=== PATIENT | female | born 1980 | race Caucasian/White ===

== ENCOUNTER 2017-07-18 15:27 | Inpatient (IN) | payer BC, OTHER ==
[~2017-07-18] VITALS: Ht 170.2 cm; Wt 55.3 kg
[2017-07-18] MEDS ORDERED: diphenhydrAMINE 50 MG CAPSULE PO PRN (19:00)
[2017-07-18] MEDS ORDERED: MIRALAX 17 GM POWD.PACK PO PRN (19:00)
[2017-07-18] MEDS ORDERED: ACETAMINOPHEN 325 MG TABLET PO PRN (19:00)
[2017-07-18] MEDS ORDERED: MAG HYDROX/AL HYDROX/SIMETH 30 ML LIQUID UDC PO PRN (19:00)
[2017-07-18] MEDS ORDERED: IBUPROFEN 400 MG TABLET PO PRN (19:00)
[2017-07-18] MEDS ORDERED: LOPERAMIDE HCL 2 MG CAPSULE PO PRN ×2 (19:00)
[2017-07-18] MEDS ORDERED: LORAZEPAM 1 MG TABLET PO PRN ×2 (19:00)
[2017-07-18] MEDS ORDERED: THIAMINE HCL 200 MG/2 ML VIAL IM ONE (19:00)
[2017-07-18] MEDS ORDERED: ONDANSETRON 4 MG/2 ML VIAL IM PRN (19:00)
[2017-07-18] MEDS ORDERED: ONDANSETRON ODT 4 MG TAB.RAPDIS SL PRN (19:00)
[2017-07-18 20:02] LABS: *URINE HCG, QUAL NEGATIVE (NEGATIVE)
[2017-07-18 20:16] LABS: *AMPHETAMINE, URINE NEGATIVE (NEGATIVE); *BARBITURATE, URINE NEGATIVE (NEGATIVE); *CANNABINOID, URINE NEGATIVE (NEGATIVE); *COCCAINE, URINE POSITIVE (NEGATIVE); *OPIATE, URINE NEGATIVE (NEGATIVE); *PHENCYCLIDINE SCREEN,URINE NEGATIVE (NEGATIVE)
[2017-07-18 20:17] LABS: EOSINOPHILS # (AUTO) 0.3 K/uL (0.0-0.7); EOSINOPHILS % (AUTO) 7.9 % (0.0-7.0); HEMATOCRIT 40.2 % (37-47); HEMOGLOBIN 13.1 G/DL (12.0-16.0); LYMPHOCYTES # (AUTO) 2.1 K/UL (0.8-4.8); LYMPHOCYTES % (AUTO) 47.8 % (20.5-51.5); MEAN CORPUSCULAR HEMOGLOBIN 28.7 UUG (27.0-31.0); MEAN CORPUSCULAR HGB CONC 33 g/dL (32.0-37.0); MONOCYTES # (AUTO) 0.3 K/UL (0.1-1.30); MONOCYTES % (AUTO) 6.4 % (0.0-11.0); NEUTROPHILS # (AUTO) 1.6 K/UL (1.8-8.9); NEUTROPHILS % (AUTO) 36.9 % (38.5-71.5); PLATELET COUNT (AUTO) 221 K/UL (150-450); RED BLOOD CELL COUNT(AUTO) 4.57 MIL/UL (4.2-5.4); WHITE BLOOD COUNT (AUTO) 4.3 K/UL (4.0-11.2)
[2017-07-18] MEDS: LORAZEPAM 2 MG/1 ML VIAL IM PRN (20:17)
[2017-07-18 20:31] LABS: BILIRUBIN,TOTAL 0.2 mg/dL (0.2-1.0); POTASSIUM 3.8 mmol/L (3.5-5.1); TOTAL PROTEIN, SERUM 7.4 g/dL (6.4-8.2)
[2017-07-18 20:45] VITALS: BP 111/80
[2017-07-18] MEDS ORDERED: LORAZEPAM 1 MG TABLET PO ONE ×2 (22:00→23:15)
[2017-07-18] MEDS ORDERED: CARBAMAZEPINE 200 MG TABLET PO ONE (22:00)
[2017-07-18] MEDS ORDERED: HYDR-3028 PO (22:39)
[2017-07-18] MEDS ORDERED: MIRT15TA7 PO (22:39)
[2017-07-18] MEDS ORDERED: LURA40TA PO (22:39)
[2017-07-18] MEDS ORDERED: TOPI25TA PO (22:39)
[2017-07-18] MEDS ORDERED: LITH450T2 PO (22:39)
[2017-07-18] MEDS ORDERED: CARBAMAZEPINE 100 MG TAB.CHEW PO ONE (23:15)
[2017-07-18] MEDS ORDERED: CARBAMAZEPINE 100 MG TAB.CHEW ONE ×2 (23:16→23:18)
[2017-07-18] MEDS ORDERED: THIAMINE HCL 200 MG/2 ML VIAL ONE (23:26)
[2017-07-19 00:19] VITALS: BP 89/55
--- NOTE | 2017-07-19 07:30 | NUR ---
START OF SHIFT Pt 37 y/o female admitted for etoh / cocaine dependence. Pt received in room on bed with eyes closed resting, but easily arousable to name. Pt alert and oriented to name, place, and time. Perrla. Skin warm and moist to touch. Respirations even and unlabored. Bilateral hand tremors noted. It was reported that pt slept for 8 hours last night. Bed on lowest position with side rails x2 up for safety. Call light within reach. No distress noted at this time.
[2017-07-19 08:00] VITALS: BP 86/56
[2017-07-19 08:30] VITALS: BP 100/76
[2017-07-19] MEDS: THIAMINE HCL 100 MG TABLET PO SCH (09:00)
[2017-07-19] MEDS: FOLIC ACID 1 MG TABLET PO SCH (09:00)
[2017-07-19] MEDS ORDERED: TUBERCULIN,PURIF.PROT.DERIV. 5 TU/0.1 ML TEST ID ONE (09:00)
[2017-07-19] MEDS: MULTIVITAMINS,THERAPEUTIC TABLET PO SCH (09:00)
--- NOTE | 2017-07-19 09:00 | NUR ---
0900 MEDICATION ADMINISTRATION All 0900 medications scheduled were administrated per MD order, per [facility] down time.
--- NOTE | 2017-07-19 09:30 | NUR ---
PRN Pt with ciwa=17. Pt showing bilateral hand tremors, states feels very anxious and agitated, and perspiration on skin noted. Ativan 2mg po prn per MD order given and tolerated well. Addendum: 07/19/17 at 1021 by ROSALINDA ABBOTT RN INCORRECT [id number]
[2017-07-19] MEDS: LORAZEPAM 1 MG TABLET PO SCH ×4 (10:05→20:27)
--- NOTE | 2017-07-19 10:05 | NUR ---
TEGRETOL tegretol scheduled at 0900 not available in the medication pixis. Pharmacy aware.
--- NOTE | 2017-07-19 10:30 | NUR ---
PRN EVAL ciwa=8.
[2017-07-19] MEDS: CARBAMAZEPINE 200 MG TABLET PO SCH ×2 (10:53→20:26)
[2017-07-19 12:00] VITALS: BP 117/82
--- NOTE | 2017-07-19 15:20 | NUR ---
PRN Pt with ciwa=17. Ativan 2 mg po prn per MD order given and tolerated well.
[2017-07-19 16:00] VITALS: BP 102/66
--- NOTE | 2017-07-19 16:20 | NUR ---
PRN EVAL Pt with ciwa=7.
[2017-07-19] MEDS: TOPIRAMATE 25 MG TABLET PO SCH (17:15)
--- NOTE | 2017-07-19 18:25 | NUR ---
END OF SHIFT Pt 37 y/o female admitted for etoh / cocaine dependence. Pt alert and oriented to name, place, and time. Perrla. Skin warm and moist to touch. Respirations even and unlabored. Bilateral hand tremors noted. Pt with periods of anxiety throughout the morning. Pt mostly isolative to room throughout the day. Pt selective with group activity. Pt was seen by MD today. Pt medication compliant and tolerated well. No ASE noted. Bed on lowest position with side rails x2 up for safety. Call light within reach. No distress noted at this time.
--- NOTE | 2017-07-19 19:05 | NUR ---
Start of Shift Patient Received. Patient is in bed sleeping. Breathing even and non labored. No signs of pain or discomfort noted. Patient is a 37 year old female admitted on 07/18/17 for ETOH Dependence under the care of Dr. Jackson and placed on a 5 day Ativan taper. Patient verbalizes allergies of PCN, Ibuprofen, and Grapes. Full code and following a regular diet. Placed on fall and seizure precautions. Skin noted intact. Past medical history noted as anxiety, insomnia, depression, and history of Seizures with last seizure noted 3 weeks ago. Per endorsement, patient was started on her taper medication and received PRN Ativan in between taper doses. Last CIWA noted 9. All needs attended to promptly. Will continue to monitor.
[2017-07-19 20:17] VITALS: BP 127/87
[2017-07-19] MEDS: MIRTAZAPINE 15 MG TABLET PO SCH (20:27)
[2017-07-19] MEDS ORDERED: LORAZEPAM 1 MG TABLET PO PRN (20:45)
[2017-07-19] MEDS ORDERED: LORAZEPAM 1 MG TABLET PO ONE (21:00)
--- NOTE | 2017-07-19 21:35 | NUR ---
PRN Medication Administration Patient received an additional dose of Ativan 2mg per MD as well as PRN Tylenol for headache of 04/08. CIWA noted to be 15. Will continue to monitor.
--- NOTE | 2017-07-19 22:30 | NUR ---
PRN Medication Reassessment/PRN Medication Administration Patient noted in bed, awake and visibly upset. patient still noted to be restless, agitated due to discomfort, noted with increase anxiety, still reporting auditory hallucination, tremulous. CIWA noted to be 17. MD made aware. PRN Ativan 2mg administered as per orders. Will continue to monitor.
[2017-07-19] MEDS: LORAZEPAM 1 MG TABLET PO PRN (23:00)
[2017-07-20] VITALS (8 sets, daily range): BP systolic 116–131; BP diastolic 70–97
--- NOTE | 2017-07-20 00:06 | NUR ---
PRN Medication Reassessment Patient noted in bed sleeping. Breathing even and non labored. patient was given PRN Ativan 2 mg for a CIWA of 17 with MD aware. Medication noted to be effective as evidence of patient sleeping with no discomfort noted. Will continue to monitor.
[2017-07-20] MEDS: LORAZEPAM 1 MG TABLET PO PRN (01:17)
[2017-07-20] MEDS: ASPIRIN/ACETAMINOPHEN/CAFFEINE TABLET PO PRN ×2 (01:20→09:44)
--- NOTE | 2017-07-20 01:22 | NUR ---
PRN Medication Administration Patient noted awake and verbalizing pain due to headache 04/08, increased nausea with episode of emesis x1, increased anxiety, restlessness, continued auditory and visual hallucinations. CIWA noted to be 17. MD made aware. PRN Ativan 2mg, Zofran, and Excedrin administered as per order. Will continue to monitor.
[2017-07-20] MEDS ORDERED: ASPIRIN/ACETAMINOPHEN/CAFFEINE TABLET ONE (01:25)
--- NOTE | 2017-07-20 02:24 | NUR ---
PRN Medication Reassessment Patient noted awake and verbalize medication was effective in minimizing withdrawal symptoms. Reassessment CIWA noted to be 9. PRN Ativan, Zofran, and Excedrin noted to be effective. Will continue to monitor.
[2017-07-20 06:06] LABS: HEPATITIS B SURFACE AG Negative (Negative)
--- NOTE | 2017-07-20 07:20 | NUR ---
End of Shift Patient is in bed sleeping but easily aroused to verbal stimuli. Breathing even and non labored. No signs of pain or discomfort noted. Patient is a 37 year old female admitted on 07/18/17 for ETOH Dependence under the care of Dr. Jackson and continues on a 5 day Ativan taper. Patient verblizes allergies of PCN, Ibuprofen, and Grapes. Full code and following a regular diet. Placed on fall and seizure precautions. Skin noted intact. Past medical history noted as anxiety, insomnia, depression, and history of Seizures with last seizure noted 3 weeks ago. Patient received multiple doses of PRN Ativan for elevated CIWA, and PRN Zofran and Excedrin. Last noted CIWA 9. All needs attended to promptly. Will continue to monitor.
--- NOTE | 2017-07-20 07:30 | NUR ---
START OF SHIFT Pt is a 37 yr old female, AA&Ox3. Pt was admitted on 07/18/17 for ETOh dependence and is on 5 day Ativan taper as ordered. Medication travis well. Received report from lieutenant shift supervisor nurse. Pt was not able to sleep during the night. Last CIWA score was 9 at 0224. Pt is on seizure precautions. Side rails are up and padded. Pt is currently in bed resting with respirations even and unlabored. No acute distress noted. Skin is intact, warm and moist to touch. Fine tremors are observed. Encouraged increase fluid intake. Safety precautions observed. Call light is within reach. Will continue to monitor.
[2017-07-20] MEDS ORDERED: HOME MED MISCELLANEOUS XX SCH (09:00)
[2017-07-20] MEDS: LORAZEPAM 1 MG TABLET PO SCH ×2 (09:03→14:55)
[2017-07-20] MEDS: LATUDA 60 MG PO SCH (09:03)
[2017-07-20] MEDS: FOLIC ACID 1 MG TABLET PO SCH (09:04)
[2017-07-20] MEDS: CARBAMAZEPINE 200 MG TABLET PO SCH (09:04)
[2017-07-20] MEDS: MULTIVITAMINS,THERAPEUTIC TABLET PO SCH (09:04)
[2017-07-20] MEDS: TOPIRAMATE 25 MG TABLET PO SCH ×2 (09:04→16:49)
[2017-07-20] MEDS: THIAMINE HCL 100 MG TABLET PO SCH (09:04)
[2017-07-20] MEDS: LITHIUM CARBONATE CR 450 MG TABLET.SA PO SCH (09:32)
--- NOTE | 2017-07-20 09:44 | NUR ---
PRN GIVEN Pt was c/o headache 05/09. Excedrin 1 tab PO PRN was given as ordered. Medication travis well. Encouraged increase fluid intake. Will continue to monitor.
--- NOTE | 2017-07-20 10:44 | NUR ---
PRN RE-ASSESSMENT Excedrin PRN was effective. Pt continues to c/o headache but is able to travis medication. Encouraged increase fluid intake. Will continue to monitor.
[2017-07-20] MEDS ORDERED: HYDROXYZINE PAMOATE 25 MG CAPSULE PO PRN (17:15)
--- NOTE | 2017-07-20 17:35 | NUR ---
PRN GIVEN Pt c/o anxiety. Vistaril 25mg PO PRN was given as ordered. Medication travis well. Will continue to monitor.
[2017-07-20] MEDS: LORAZEPAM 2 MG/1 ML VIAL IM PRN ×2 (19:18→19:40)
--- NOTE | 2017-07-20 19:20 | NUR ---
NSG NOTES/END OF SHIFT At 185, pt was c/o numbness on both lower extremities. upon assessment pt was observed with slurred speech and disoriented. Pupil were reactive to light and was able to squeeze with both hands. At 190, pt was observed wtih x1 episodes of catatonic seizure lasting for 9 minutes. Rapid response was called at 190. VS at 190 was 131/97, HR 98, O2 98% on 5LPM via NC. Ativan 2mg IM PRN was given at 1907. Medication was manually administered due to unable to scan wrist band. Dr. Jackson was at bedside and assessing the pt. Per MD, no need to administer another dose of Ativan. Pt then became responsive at 1911. Pt continues to be disoriented to place, time and situation but is able to state name. VS were retaken at 1911, BP 123/86, P86, R 100% on 3LPM via NC. Pt is placed on 1:1 for seizure. Side rails are up and remained padded. Gave report to mine shifter nurse to continue to monitor.
--- NOTE | 2017-07-20 19:30 | NUR ---
Start of Shift Note Received a 37 yr old female, disoriented to time, place and situation but knows her name. Px was admitted on 07/18/17 for ETOH dependence and is on 5 day Ativan taper as ordered. Px is on seizure precautions. Px is on 1:1 for seizure. Px verbalizes allergies from PCN, Ibuprofen, raisins and grapes. Px is on full code and following a regular diet. Px was seizing at 1930- 1935. BP= 119/ 96, RI= 139, O2sat= 97% on O2 inhalation via NC at 4LPM. Px placed of her left side, vomiting, suctioned orally. Ativan 2 mg/ml, 1 ml given IM on her left deltoids as ordered @ 1940. BP= 117/79, RI= 102, O2sat= 100%. Safety precautions observed. Bed is on lowest position. Side rails up 2x padded. Call light is within reach. We'll continue to monitor.
[2017-07-20] MEDS ORDERED: DIAZEPAM 5 MG TABLET PO PRN (19:45)
[2017-07-20] MEDS ORDERED: DIAZEPAM 10 MG TABLET PO PRN ×2 (19:45)
[2017-07-20 20:08] LABS: BASOPHILS # (AUTO) 0.1 K/uL (0.0-8.0); BASOPHILS % (AUTO) 0.9 % (0.0-2.0); EOSINOPHILS # (AUTO) 0.4 K/uL (0.0-0.7); EOSINOPHILS % (AUTO) 6.9 % (0.0-7.0); HEMOGLOBIN 14.2 G/DL (12.0-16.0); LYMPHOCYTES # (AUTO) 1.3 K/UL (0.8-4.8); LYMPHOCYTES % (AUTO) 20.8 % (20.5-51.5); MEAN CORPUSCULAR HEMOGLOBIN 29.7 UUG (27.0-31.0); MEAN CORPUSCULAR HGB CONC 33 g/dL (32.0-37.0); MEAN CORPUSCULAR VOLUME 89.8 FL (81.0-99.0); MONOCYTES # (AUTO) 0.4 K/UL (0.1-1.30); MONOCYTES % (AUTO) 6.3 % (0.0-11.0); NEUTROPHILS % (AUTO) 65.1 % (38.5-71.5); PLATELET COUNT (AUTO) 180 K/UL (150-450); RED BLOOD CELL COUNT(AUTO) 4.79 MIL/UL (4.2-5.4); WHITE BLOOD COUNT (AUTO) 6.2 K/UL (4.0-11.2)
[2017-07-20 20:14] LABS: CREATININE 1.2 mg/dL (0.6-1.3); POTASSIUM 3.5 mmol/L (3.5-5.1)
--- NOTE | 2017-07-20 20:15 | NUR ---
IV access Peripheral IV access started on left dorsal hand aseptically using 22G, with good backflow, flushed with 10 cc NS. Px tolerated. We'll continue to monitor.
[2017-07-20 20:19] LABS: BILIRUBIN,DIRECT 0.1 mg/dL (0.0-0.2); BILIRUBIN,TOTAL 0.2 mg/dL (0.2-1.0); MAGNESIUM 2.1 mg/dL (1.8-2.4); TOTAL PROTEIN, SERUM 7.6 g/dL (6.4-8.2)
--- NOTE | 2017-07-20 20:42 | NUR ---
Seizures Px had tonic seizures at 2- 2048 (6 mins.) and 2309- 2314 (5 mins.). Dr. Jackson aware with order to give Ativan 2mg/ml, 1 ml IM for the next seizure of more than 4 mins. We'll continue to monitor.
[2017-07-20] MEDS: MIRTAZAPINE 15 MG TABLET PO SCH (20:54)
[2017-07-20] MEDS ORDERED: PHENOBARBITAL 60 MG TABLET PO SCH (21:00)
[2017-07-20] MEDS ORDERED: CARBAMAZEPINE 200 MG TABLET PO SCH (21:00)
[2017-07-20] MEDS: IV NS 1000 ML 1,000 ML IV PRN (21:03)
[2017-07-20] MEDS ORDERED: PHENOBARBITAL 60 MG TABLET ONE (21:05)
[2017-07-21] VITALS (7 sets, daily range): BP systolic 100–132; BP diastolic 70–80
--- NOTE | 2017-07-21 | NUR ---
CIWA deferred CIWA deferred due to the px is sleeping, to assess if the px is awake per doctor's order. Respirations are even and unlabored. We'll continue to monitor.
[2017-07-21] MEDS ORDERED: DICYCLOMINE HCL 20 MG TABLET PO PRN (04:00)
--- NOTE | 2017-07-21 04:05 | NUR ---
PRN Bentyl Px complained of stomach cramps. Bentyl 20 mg/tab, 1 tab given PO as PRN med. We'll continue to monitor.
[2017-07-21] MEDS ORDERED: DICYCLOMINE HCL 20 MG TABLET ONE (04:15)
--- NOTE | 2017-07-21 05:00 | NUR ---
2nd bottle of IVF NS IVF 2nd bottle of NS 1 L hooked at 0500 running at 125 ml/hr for hydration. We'll continue to monitor.
--- NOTE | 2017-07-21 05:05 | NUR ---
Reassessment of stomach cramps Reassessment deferred due to the px is sleeping. We'll continue to monitor.
[2017-07-21] MEDS: IV NS 1000 ML 1,000 ML IV PRN (05:06)
--- NOTE | 2017-07-21 07:17 | NUR ---
End of Shift Note Received a 37 yr old female, disoriented to time, place and situation but knows her name. Px was admitted on 07/18/17 for ETOh dependence and is on 5 day Ativan taper as ordered. Px is on seizure precautions. Px is on 1:1 for seizure. Px verbalizes allergies from PCN, Ibuprofen, raisins and grapes. Px is on full code and following a regular diet. Side rails are up and padded. Bed is on lowest position. Px was seizing at 1930- 1935. BP= 119/ 96, ND= 139, O2sat= 97% on O2 inhalation via NC at 4LPM. Px placed on her left side, vomiting, suctioned orally. Ativan 2 mg/ml, 1 ml given IM on her left deltoids as ordered @ 1940. BP= 117/79, ND= 102, O2sat= 100%. Px had tonic seizures at 2042- 2048 (6 mins.) and 2309- 2314 (5 mins.). Dr. Jackson aware with order to give Ativan 2mg/ml, 1 ml IM for the next seizure of more than 4 mins IVF NS 1L hooked running at 125 ml/hr via peripheral IV access on left dorsal hand at 2100. 2nd bottle of IVF NS 1 L hooked at 0500 running at 125 ml/hr. IVF 2nd bottle of NS 1 L hooked at 0500 running at 125 ml/hr. At 0400, Px complained of stomach cramps. Bentyl 20 mg/tab, 1 tab given PO as PRN med. Oral intake of 1,100 ml, voided 2x, No BM. Slept for 5 hrs. Last CIWA 10. Safety precautions observed. Bed is on lowest position. Call light is within reach. We'll continue to monitor.
--- NOTE | 2017-07-21 07:30 | NUR ---
START OF SHIFT Pt is a 37 yr old female, AA&Ox3. Pt was admitted on 07/18/17 for ETOH dependence and started on Phenobarbital taper. Received report from classics professor nurse. Pt was observed with x4 episodes of seizures during the night. Pt is on 1:1 for seizure precautions. IV was placed on left hand. IVF remains running at 125ml/hr. IV site is intact and patent. Last CIWA score was 10 at 0400. Pt is currently in bed resting with respirations even and unlabored. No acute distress noted. Skin is intact, warm and dry to touch. Safety precautions observed. Call light is within reach. Will continue to monitor.
[2017-07-21] MEDS ORDERED: LORAZEPAM 1 MG TABLET PO SCH (09:00)
[2017-07-21] MEDS ORDERED: CARBAMAZEPINE 200 MG TABLET PO SCH ×2 (09:00→21:00)
[2017-07-21] MEDS: LITHIUM CARBONATE CR 450 MG TABLET.SA PO SCH (09:15)
[2017-07-21] MEDS: THIAMINE HCL 100 MG TABLET PO SCH (09:15)
[2017-07-21] MEDS: LATUDA 60 MG PO SCH (09:15)
[2017-07-21] MEDS: TOPIRAMATE 25 MG TABLET PO SCH ×2 (09:15→17:23)
[2017-07-21] MEDS: MULTIVITAMINS,THERAPEUTIC TABLET PO SCH (09:15)
[2017-07-21] MEDS: PHENOBARBITAL 60 MG TABLET PO SCH ×4 (09:15→20:14)
[2017-07-21] MEDS: FOLIC ACID 1 MG TABLET PO SCH (09:15)
--- NOTE | 2017-07-21 12:23 | NUR ---
NSG NOTES Pt was seen and examined by Dr. Jackson. Per , okay to remove pt off 1:1 sitter for seizures precautions. 1:1 Sitter was removed at 1045. Bed kept in low position and locked with side rails up x2 and padded. Call light is within reach. Pt is also able to go to the patio to smoke, per . Will continue to monitor.
--- NOTE | 2017-07-21 14:30 | NUR ---
NSG NOTES At 1426, pt experience a tonic seizure lasting for 2 minutes. Pt was immediately place on her left side to prevent aspiration. No Ativan IM was given per parameters to given if seizure last longer than 4 minutes. VS postseizure at 1428 was 124/76, HR 89, R 18, O2 was 100% at 2LPM via NC. Pt was disorient to place, time and situation but is able to state name and date of . Dr. Jackson was notified with new order to give Valium 10mg PO PRN and Tegretol 400mg PO scheduled. Pt was place on 1:1 for seizure precautions and per MD, is not allowed to smoke in the patio TFO. Will continue to monitor
[2017-07-21] MEDS: CARBAMAZEPINE 200 MG TABLET PO SCH ×2 (14:44→20:14)
--- NOTE | 2017-07-21 14:44 | NUR ---
NSG NOTES/MEDICATION ADMINISTERED Valium 10mg PO PRN and Tegretol 400mg PO was given. Pt is observed to be more oriented to person, place and situation. Pt stated, "when is my next dose on pheno". Pt was able to travis medication. Pt is c/o headache. pt denies any hallucinations. IVF remains running at 125ml/hr. IV site is kept clean and intact. Will continue to monitor. Addendum: 07/21/17 at 1624 by AZAEL SAGASTUME LVN CIWA score was 13
--- NOTE | 2017-07-21 16:00 | NUR ---
PRN RE-ASSESSMENT Valium 10mg PO PRN was effective. CIWA score is 4. Pt is alert and oriented to person, place, time and situation. Pt remains on 1:1 sitter. Encouraged increase fluids. Will continue to monitor.
--- NOTE | 2017-07-21 17:59 | NUR ---
NSG NOTES Pt was refusing IVF. Md was made aware with new order to discontinue IVF. IV gauge 22 remains on left hand. Site is kept clean and dry. Will continue to monitor.
--- NOTE | 2017-07-21 19:00 | NUR ---
END OF SHIFT Pt is a 37 yr old female, AA&Ox3. Pt was admitted on 07/18/17 for ETOH dependence and is on Phenobarbital taper.Medication was travis well. Pt has been cooperative with medication regimen. Pt experiences x1 episode of seizure during the day lasting 2 min. Pt received Valium and Tegretol was increased to 400mg at 1500. Medication was effective. Pt is on 1:1 for seizure precautions. IV site is on left hand, intact and patent. IVF was discontinued. Last CIWA score was 4 at 1600. Skin is intact, warm and dry to touch. Safety precautions observed. Call light is within reach.
--- NOTE | 2017-07-21 19:30 | NUR ---
START OF SHIFT Received report from day shift,Pt is a 37 yr old female admitted on for ETOH dependency.Pt continues on Phenobarbital taper.Medication was well tolerated. Pt has been cooperative with medication regimen. Pt experiences x1 episode of seizure during the day lasting 2 min. Pt received Valium and Tegretol was increased to 400mg at 1500. Medication was effective. Pt is on 1:1 for seizure precautions. IV site is on left hand, intact and patent. IVF was discontinued. Last CIWA score was 4 at 1600. Pt received in room in a stable condition.Tearful on approach,focused on smoking.Pt reoriented to reality regarding seizure and safety precautions.Skin is intact, warm and dry to touch. Safety precautions observed.Sitter is at bed side.Call light is within reach.Will continue to monitor for safety.
[2017-07-21] MEDS: LEVETIRACETAM 500 MG TABLET PO SCH (20:14)
[2017-07-21] MEDS: MIRTAZAPINE 15 MG TABLET PO SCH (20:14)
--- NOTE | 2017-07-21 21:00 | NUR ---
RN NOTE At 2052, pt had a seizure while she was in bed,it lasted for 2 minutes. Pt was placed on her left side to prevent aspiration. V/S were stable.B/P 106/67, HR 95, R 18, O2 was 100% at 2LPM via NC. Pt was immediately arousable,appeared lethargic,oriented to person only. Dr. Jackson was notified,no new orders noted. Pt remains on 1:1 for seizure precautions and per MD and is not allowed to smoke in the patio.Sitter remains at bedside. Will continue to monitor
--- NOTE | 2017-07-21 21:42 | NUR ---
PRN MED PRN VALIUM 5 MG PO GIVEN FOR INCREASED ANXIETY/CIWA SCORE OF 6.WILL CONTINUE TO MONITOR.
--- NOTE | 2017-07-21 22:42 | NUR ---
PRN F/U PT IS RESTING IN BED WITH EYES CLOSED,APPEARS TO BE ASLEEP.NO S/S OF DISTRESS NOTED.UNABLE TO ASSESS FOR CIWA D/T SLEEP.WILL CONTINUE TO MONITOR.
[2017-07-22] VITALS: BP 98/71
[2017-07-22 04:00] VITALS: BP 95/65
--- NOTE | 2017-07-22 06:52 | NUR ---
END OF SHIFT Pt is a 37 yr old female admitted on for ETOH dependency.Pt continues on Phenobarbital taper.Medication is well tolerated.Seizure and fall precautions observed at al time. Pt has been cooperative with medication regimen. Pt had one episode of seizure during the night, lasting 2 min.Pt is on 1:1 close observation for seizure precautions.Pt has IV site is on left hand, intact and patent. IVF was discontinued yesterday. Last CIWA score was 2 at 0400.PRN Valium 5 mg PO was given x 1 last night.Pt slept 8 hours,fluid intake was 1005 mls,voided x 2 stool x 1.Skin is intact, warm and dry to touch. Safety precautions observed.Sitter is at bed side.Call light is within reach.Will continue to monitor for safety.
--- NOTE | 2017-07-22 07:30 | NUR ---
START OF SHIFT Pt is a 37 yr old female, AA&Ox3. Pt was admitted on 07/18/17 for ETOH dependence and on Phenobarbital taper. Received report from fire prevention captain nurse. Pt was observed with x1 episode of seizure during the night. Valium PRN was given and effective. Pt is on 1:1 for seizure precautions. IV remains in placed on left hand, 22 gauge. Last CIWA score was 2 at 0400. Pt slept for 8 hrs. Pt is currently in bed resting with respirations even and unlabored. No acute distress noted. Skin is intact, warm and dry to touch. Safety precautions observed. Call light is within reach. Will continue to monitor.
[2017-07-22 08:00] VITALS: BP 113/82
[2017-07-22] MEDS ORDERED: LORAZEPAM 1 MG TABLET PO SCH (09:00)
[2017-07-22] MEDS: PHENOBARBITAL 60 MG TABLET PO SCH ×3 (09:25→21:24)
[2017-07-22] MEDS: THIAMINE HCL 100 MG TABLET PO SCH (09:25)
[2017-07-22] MEDS: MULTIVITAMINS,THERAPEUTIC TABLET PO SCH (09:25)
[2017-07-22] MEDS: LEVETIRACETAM 500 MG TABLET PO SCH ×2 (09:25→21:24)
[2017-07-22] MEDS: LITHIUM CARBONATE CR 450 MG TABLET.SA PO SCH (09:25)
[2017-07-22] MEDS: FOLIC ACID 1 MG TABLET PO SCH (09:25)
[2017-07-22] MEDS: LATUDA 60 MG PO SCH (09:25)
[2017-07-22] MEDS: TOPIRAMATE 25 MG TABLET PO SCH ×2 (09:25→16:55)
[2017-07-22] MEDS: CARBAMAZEPINE 200 MG TABLET PO SCH ×3 (09:26→21:24)
[2017-07-22 12:00] VITALS: BP 105/76
[2017-07-22 16:00] VITALS: BP 122/74
--- NOTE | 2017-07-22 19:12 | NUR ---
END OF SHIFT Pt is a 37 yr old female, AA&Ox3. Pt was admitted on 07/18/17 for ETOH dependence and is on Phenobarbital taper.Medication was travis well. Pt has been cooperative with medication regimen. Pt has been in her room throughout the day and refused to attend group. Pt denies any anxiety or agitation. No PRN's were given during the day. No episodes of seizure was noted. Pt remains on 1:1 for seizure precautions. IV site is on left hand, intact and patent. Last CIWA score was 2 at 1600. Skin is intact, warm and dry to touch. Safety precautions observed. Call light is within reach.
[2017-07-22 20:00] VITALS: BP 118/68
--- NOTE | 2017-07-22 20:00 | NUR ---
Start of Shift Notes Received a 37 yr old female, admitted on 07/18/17 for ETOH dependence and is on Phenobarbital taper. Px has been cooperative with medication regimen. Px remains on 1:1 for seizure precautions. Peripheral IV access on left dorsal hand, intact and patent. During the rounds at 1930, px is disoriented on time but oriented on person, place and situation. Verbalized heightened anxiety. VS in WNL. Safety precautions observed, bed on lowest, side rails up x2 padded. Call light is within reach. We'll continue to monitor.
[2017-07-22] MEDS: MIRTAZAPINE 15 MG TABLET PO SCH (21:24)
[2017-07-23] VITALS: BP 106/72
--- NOTE | 2017-07-23 | NUR ---
CIWA deferred CIWA deferred due to the px is sleeping, to assess if the px is awake per doctors order. We'll continue to monitor.
[2017-07-23 04:00] VITALS: BP 111/73
--- NOTE | 2017-07-23 06:00 | NUR ---
peripheral IV access Px peripheral IV access line on left dorsal hand was accidentally pulled out. We'll continue to monitor.
--- NOTE | 2017-07-23 07:15 | NUR ---
End of Shift Notes 37 yr old female, admitted on 07/18/17 for ETOH dependence and is on Phenobarbital taper. Px has been cooperative with medication regimen. Px remains on 1:1 for seizure precautions. Peripheral IV access on left dorsal hand, intact and patent. During the shift, px is disoriented on time but oriented on person, place and situation. Verbalized increased anxiety. Peripheral IV access was accidentally pulled out. Oral intake of 1,700 ml, voided x5, BM x1. Slept for 6 hrs. Safety precautions observed. Call light is within reach. We'll continue to monitor.
--- NOTE | 2017-07-23 07:30 | NUR ---
START OF SHIFT Pt is a 37 yr old female, AA&Ox3. Pt was admitted on 07/18/17 for ETOH dependence and on Phenobarbital taper. Received report from shift superintendent nurse. No episodes of seizure was reported. IV 22 gauged was removed. Last CIWA score was 5 at 0400. Pt slept for 6 hrs. Pt denies any anxiety or agitation at this time. Pt states, "I feel much better now". No acute distress noted. Skin is intact, warm and dry to touch. No tremors seen or felt. Pt denies any auditory or visual hallucinations. Encouraged increase fluid intake. Safety precautions observed. Call light is within reach. Will continue to monitor.
[2017-07-23 08:00] VITALS: BP 97/66
[2017-07-23] MEDS: FOLIC ACID 1 MG TABLET PO SCH (08:43)
[2017-07-23] MEDS: TOPIRAMATE 25 MG TABLET PO SCH ×2 (08:43→16:44)
[2017-07-23] MEDS: PHENOBARBITAL 60 MG TABLET PO SCH ×4 (08:43→20:15)
[2017-07-23] MEDS: MULTIVITAMINS,THERAPEUTIC TABLET PO SCH (08:43)
[2017-07-23] MEDS: CARBAMAZEPINE 200 MG TABLET PO SCH ×2 (08:44→20:16)
[2017-07-23] MEDS: THIAMINE HCL 100 MG TABLET PO SCH (08:44)
[2017-07-23] MEDS: LITHIUM CARBONATE CR 450 MG TABLET.SA PO SCH (08:44)
[2017-07-23] MEDS: LEVETIRACETAM 500 MG TABLET PO SCH ×2 (08:44→20:14)
[2017-07-23] MEDS: LATUDA 60 MG PO SCH (08:44)
[2017-07-23] MEDS ORDERED: LORAZEPAM 1 MG TABLET PO SCH (09:00)
--- NOTE | 2017-07-23 10:30 | NUR ---
NSG NOTES Pt was seen and examined by Dr. Jackson. Per , okay to remove pt from 1:1 for seizure precautions. Pt is in stable condition and oriented to person, place, time and situation. Will continue to monitor.
[2017-07-23 12:00] VITALS: BP 113/70
--- NOTE | 2017-07-23 13:45 | NUR ---
Activity Group Note: Client participated in "painting" activity. Intervention goal was to increase task focus and leisure skills. Client appeared to have a depressed mood with flat affect. Client sat hunched over in her chair and stated, "I'm not feeling well," and left the room. Client was unable to complete the task. die set up worker will continue to encourage participation in the future.
[2017-07-23] MEDS: ASPIRIN/ACETAMINOPHEN/CAFFEINE TABLET PO PRN (14:12)
--- NOTE | 2017-07-23 14:12 | NUR ---
PRN GIVEN Pt c/o headache 03/09. Facial grimacing is observed. Excedrin 1 tab PO PRN was given as ordered. Medication travis well. Encouraged increase fluids intake. Will continue to monitor.
--- NOTE | 2017-07-23 15:12 | NUR ---
PRN RE-ASSESSMENT Excedrin PRN was effective for headache. Pt denies any headache at this time. Encouraged increase fluid intake. Will continue to monitor.
[2017-07-23 16:00] VITALS: BP 108/72
--- NOTE | 2017-07-23 18:53 | NUR ---
END OF SHIFT Pt is a 37 yr old female, AA&Ox3. Pt was admitted on 07/18/17 for ETOH dependence and is on Phenobarbital taper. Medication was travis well. Pt has been cooperative with medication regimen. Pt attended group therapy in the morning. Pt was removed from 1:1 per MD. Last CIWA score was 6 at 1600. Pt received Excedrin PRN for headache. Medication was effective. . Pt denies any anxiety or agitation. No episodes of seizure was noted. Pt denies any n/v. Skin is intact, warm and dry to touch. Fine tremors are observed. Safety precautions observed. Call light is within reach.
--- NOTE | 2017-07-23 18:53 | NUR ---
START OF SHIFT NOTE: Patient is a 37 year old female admitted to [facility] on for Alcohol and Cocaine dependence. Patient continue 5 Day Phenobarbital Taper since. Patient tolerated well without ASE. Patient remains compliant with treatment, medications, and diet regime. Patient Allergy to PCN, Ibuprofen, Grapes, and Raisins. Patient is on Full Code, Regular Diet, Fall and Seizures Precautions. PMH: Anxiety, Depression, Insomnia, History of Seizures ( 05/2017, 07/18/2017), Substance Abuse History. Patient reports Alcohol use "6 bottles of wine every day since 04/2017". Last used "5 drinks on 07/18/2017 @1700". Patient reports, also. "use cocaine 2 grams every day since 04/2017. Last used 1 gram on 07/18/2017 @1700". Upon endorsement, patient is in her room. Patient is alert and oriented x4. Patient denied SI/HI. VSWNL. CIWA 7. Breathing is unlabored and even. Lungs Sounds are clear thoroughly. Abdomen is soft, non-tender. Bowel Sounds are active in all 4 quadrants. Skin is intact, warm and dry to touch. Encouraged fluids intake as tolerated. All needs met. Safety measures in place: Call light within the patient, bed in lowest position, and locked, padded bed rails up x2. Patient endorsed by outgoing day shift nurse, report received. Will continue to monitor closely. Addendum: 07/23/17 at 2132 by ERIKA KING RN admitted to [facility] on 07/18/2017
[2017-07-23 20:00] VITALS: BP 129/86
[2017-07-23] MEDS: MIRTAZAPINE 15 MG TABLET PO SCH (20:15)
[2017-07-24] VITALS: BP 105/70
[2017-07-24] MEDS: ASPIRIN/ACETAMINOPHEN/CAFFEINE TABLET PO PRN ×2 (01:27→12:17)
--- NOTE | 2017-07-24 01:27 | NUR ---
PRN EXCEDRIN EXTRA STRENGTH 1 TAB PO ADMINISTRATION Patient c/o migraine headache. Patient reports pain level "7/10". PRN Excedrin Extra Strength 1 tab PO administrated with full glass of water as ordered. Patient tolerated well. All needs met. Safety measures on place. Call light within reach, bed in lowest position and locked, padded rails up bilaterally rails up bilaterally. Will continue to monitor closely.
--- NOTE | 2017-07-24 02:27 | NUR ---
RE-ASSESSMENT Patient is sleeping. Respirations even and unlabored. RR 16. PRN Excedrin Extra Strength 1 tab PO administrated to patient @0127 was effective. All needs met. Safety measures on place. Call light within reach, bed in lowest position and locked, padded rails up bilaterally rails up bilaterally. Will continue to monitor closely
--- NOTE | 2017-07-24 04:00 | NUR ---
VS REFUSED AND CIWA DEFERRED Patient refused to be woken up for 0400 VS. CIWA deferred d/t patient sleeping to assess while patient is awake. Safety measures on place by hospital policy: Call light within reach; Bed in lowest position and locked; side rails up x2. Will continue to monitor.
[2017-07-24 05:00] VITALS: BP 97/64
[2017-07-24] MEDS: CLONIDINE HCL 0.1 MG TABLET PO PRN ×2 (05:53→12:17)
--- NOTE | 2017-07-24 05:53 | NUR ---
PRN CLONIDINE 0.1 MG 1 TAB PO ADMINISTRATION PRN Clonidine 0.1 mg 1 tab PO administrated for anxiety as ordered with full glass of water. Patient tolerated well. All needs met. Safety measures on place. Call light within reach, bed in lowest position and locked, padded rails up bilaterally rails up bilaterally. Will continue to monitor closely.
--- NOTE | 2017-07-24 06:53 | NUR ---
RE-ASSESSMENT Patient is sleeping. Respirations even and unlabored. RR 16. PRN Clonidine 0.1 mg 1 tab PO for anxiety administrated @0553 was effective. All needs met. Safety measures on place. Call light within reach, bed in lowest position and locked, padded rails up bilaterally rails up bilaterally. Will continue to monitor closely.
--- NOTE | 2017-07-24 07:07 | NUR ---
END OF SHIFT NOTE: Patient is a 28 year old male admitted to [facility] on 07/19/2017 for Alcohol and Librium dependence. Patient continue 5 Day Ativan Taper. Patient tolerated well without ASE. Patient remains compliant with treatment, medications, and diet regime. Patient reports NKA. Patient is on Full Code, Regular Diet, Fall and Seizures Precautions. PMH: Anxiety, Depression, Insomnia, HTN, History of Seizures, Fall history on "07/18/2017 r/t intoxication @home", Gastric Pass Surgery, Substance Abuse History. Patient denied SI/HI. Patient refused to be woken up for 0400 VS. COWS/CIWA deferred d/t patient sleeping to assess while patient is awake. Last CIWA 6 @0000. CIWA taken when patient was alert during the night. Latest VS @0000: T: 97.7, BP: 140/84, HR:97, RR:19, RA O2Sat: 98%. Pain level: "0/10". Respirations unlabored and even. Patient denies SOB and chest pain. Skin is, warm and dry to touch. Patient has bruises on Right Upper Arm and on the Back "from falls on 07/18/2017 @home". PRN Seroquel 150 mg 1.5 tab. PO administrated @0020 was effective. Patient slept 5 hours, intake 2,710 ml, voided x6, stool x1. Encourage fluids as tolerated. Encourage to attend activities groups. All needs met. Safety measures on place. Call light within reach, bed in lowest position and locked, padded rails up bilaterally. Patient endorsed to day shift nurse. Addendum: 07/24/17 at 0710 by ERIKA KING RN wrong patient
--- NOTE | 2017-07-24 07:11 | NUR ---
END OF SHIFT NOTE: Patient is a 37 year old female admitted to [facility] on for Alcohol and Cocaine dependence. Patient continue 5 Day Phenobarbital Taper since. Patient tolerated well without ASE. Patient remains compliant with treatment, medications, and diet regime. Patient Allergy to PCN, Ibuprofen, Grapes, and Raisins. Patient is on Full Code, Regular Diet, Fall and Seizures Precautions. PMH: Anxiety, Depression, Insomnia, History of Seizures ( 05/2017, 07/18/2017). Patient denied SI/HI. Latest CIWA 5 @00m 0500. CIWA taken when patient was alert during the night. Latest VS @0500: T: 97.9, BP: 97/64, HR:89, RR:18, RA O2Sat: 100%. Pain level: "0/10". Respirations unlabored and even. Patient denies SOB and chest pain. Skin is intact, warm and dry to touch. PRN Excedrin Extra Strength 1 tab PO administrated for migraine headache @0127, and PRN Clonidine 0.1 mg 1 tab PO administrated for anxiety @0553 were effective. Patient slept 7 hours, intake 1,780 ml, voided x3. Encourage fluids as tolerated. Encourage to attend activities groups. All needs met. Safety measures on place. Call light within reach, bed in lowest position and locked, padded rails up bilaterally. Patient endorsed to day shift nurse.
--- NOTE | 2017-07-24 07:30 | NUR ---
start of shift note: received pt from caustic cresylate shift superintendent nurse, pt is in stable condition no s/s of pain or discomfort. pt is admitted to [facility] for ETOH withdrawal/dependence. pt without seizures through the night pt's last ciwa 5. pt tolerating seizure and taper medications well w/ A/R noted. will monitor pt for any changes and continue to meet pts needs
[2017-07-24 09:00] VITALS: BP 111/72
[2017-07-24] MEDS: PHENOBARBITAL 60 MG TABLET PO SCH ×3 (09:14→22:03)
[2017-07-24] MEDS: LEVETIRACETAM 500 MG TABLET PO SCH ×2 (09:15→22:03)
[2017-07-24] MEDS: MULTIVITAMINS,THERAPEUTIC TABLET PO SCH (09:15)
[2017-07-24] MEDS: TOPIRAMATE 25 MG TABLET PO SCH ×2 (09:15→16:36)
[2017-07-24] MEDS: CARBAMAZEPINE 200 MG TABLET PO SCH ×2 (09:15→22:03)
[2017-07-24] MEDS: THIAMINE HCL 100 MG TABLET PO SCH (09:15)
[2017-07-24] MEDS: LITHIUM CARBONATE CR 450 MG TABLET.SA PO SCH (09:15)
[2017-07-24] MEDS: FOLIC ACID 1 MG TABLET PO SCH (09:15)
[2017-07-24] MEDS: LATUDA 60 MG PO SCH (09:18)
--- NOTE | 2017-07-24 12:24 | NUR ---
PRN administration: pt with complaints of headache Excedrin was administered for pain scale 8/10, pt also verbalized increased anxiety, HR increased to 90. MD with verbal order to administer clonidine.
[2017-07-24] MEDS ORDERED: CLONIDINE HCL 0.1 MG TABLET PO PRN (12:45)
--- NOTE | 2017-07-24 13:30 | NUR ---
ISH re-assessment: pt verbalized clonidine was not effective, pt still noted with anxiety "im still anxious but not as much. ill wait for what the Doctor will say. Addendum: 07/24/17 at 1456 by JUAN FRANCISCO HIGGINS RN Excedrin effective pain level of headache 11/09.
--- NOTE | 2017-07-24 13:45 | NUR ---
Activity Group Note: Client attended activity group today. When prompted, client refused to participate in "Sequence" activity. Client stated, "I just want to watch today." Client appeared to have a depressed mood with flat affect. Client did not initiate conversation with her peers. television maintenance worker will continue to encourage participation in activity group in the future.
[2017-07-24 13:49] VITALS: BP 122/77
[2017-07-24] MEDS: HYDROXYZINE PAMOATE 25 MG CAPSULE PO PRN (14:32)
--- NOTE | 2017-07-24 14:32 | NUR ---
Prn administration: pt verbalized her anxiety has not been relieved, spoke with Psychiatrist with orders to administer Vistaril.
[2017-07-24] MEDS ORDERED: DIAZEPAM 10 MG TABLET PO ONE (15:45)
[2017-07-24] MEDS ORDERED: CARBAMAZEPINE 200 MG TABLET PO ONE (15:45)
--- NOTE | 2017-07-24 15:46 | NUR ---
NEW ORDER Notified Dr. Jackson that patient states she feels the aura she gets before having a seizure. Dr. Jackson ordered Tegretol 400mg and Valium 10mg once. Primary nurse to reassess.
[2017-07-24 17:00] VITALS: BP 105/68
--- NOTE | 2017-07-24 18:44 | NUR ---
end of shift note: pt is in stable condition no s/s of pain or discomfort, no s/s of seizure activity. pt's last ciwa 5. pt tolerated taper medications well. pt is admitted to [facility] for ETOH withdrawal/dependence. pt joined activities and groups throughout the shift. pt needs more re- enforcement regarding managing anxiety. will endorse pt to night patrol inspector nurse
--- NOTE | 2017-07-24 19:14 | NUR ---
Start of shift note Received report from day shift nurse. Pt is a 37 yo female, A+OX4, presenting to [address] for ETOH/Cocaine dependence. Pt has Allergies to PCN, Ibuprofen, Grapes, and Raisins, is on Full code status, and on Regular diet. Pt is on Fall and Seizure precautions. Pt has HX of Seizure, Anxiety, insomnia, depression, and bipolar. Pt is on 5 day Phenobarbital taper, tolerated well. No s/s of distress noted at this time. Respirations even and unlabored. Will continue to monitor.
[2017-07-24 20:07] VITALS: BP 95/70
[2017-07-24] MEDS: MIRTAZAPINE 15 MG TABLET PO SCH (22:03)
[2017-07-24] MEDS ORDERED: LEVETIRACETAM 500 MG TABLET ONE (22:10)
[2017-07-25 00:40] VITALS: BP 98/62
[2017-07-25 04:12] VITALS: BP 112/73
[2017-07-25] MEDS: ASPIRIN/ACETAMINOPHEN/CAFFEINE TABLET PO PRN (05:25)
[2017-07-25] MEDS: HYDROXYZINE PAMOATE 25 MG CAPSULE PO PRN ×3 (05:25→20:59)
--- NOTE | 2017-07-25 05:25 | NUR ---
PRN Excedrin and Vistaril Pt c/o anxiety and headache and requested for PRN Vistaril and Excedrin. Medications given and tolerated well. Will reassess within 1 HR. Will continue to monitor.
--- NOTE | 2017-07-25 06:24 | NUR ---
PRN Excedrin and Vistaril Reassessment Medications effective. Pt is resting well in bed. No s/s of ASE/distress noted at this time. Respirations even and unlabored. Will continue to monitor.
--- NOTE | 2017-07-25 07:00 | NUR ---
End of shift note Pt is a 37 yo female, A+OX4, presenting to [address] for ETOH/Cocaine dependence. Pt has Allergies to PCN, Ibuprofen, Grapes, and Raisins, is on Full code status, and on Regular diet. Pt is on Fall and Seizure precautions. Pt has HX of Seizure, Anxiety, insomnia, depression, and bipolar. Pt is on 5 day Phenobarbital taper, tolerated well. Pt was given PRN Excedrin and Vistaril @0525. Pt slept for a total of 6 HRS. Last CIWA: 3 @0400. No s/s of distress noted at this time. Respirations even and unlabored. Will endorse to day shift nurse.
[2017-07-25 08:00] VITALS: BP 97/67
--- NOTE | 2017-07-25 08:00 | NUR ---
START OF SHIFT NOTE 37 year old female. Admitted for ETOH and cocaine substance abuse. On Phenobarbital taper. Allergy to PCN and grapes/raisins. On fall and seizure precautions. History of seizure, bipolar disorder, anxiety and depression. Received report from night RN. Pt received PRN Excedrin, Vistaril at 0525. Slept 6 hours. Last CIWA 3 at 0400. 0800 nursing rounds, Pt alert and orient x 4. Side rails up x 2 and padded, bed in low position and locked. Call light within reach. Will continue to monitor.
[2017-07-25] MEDS ORDERED: PHENOBARBITAL 60 MG TABLET PO SCH ×2 (09:00)
[2017-07-25] MEDS: MULTIVITAMINS,THERAPEUTIC TABLET PO SCH (09:49)
[2017-07-25] MEDS: LEVETIRACETAM 500 MG TABLET PO SCH ×2 (09:51→20:58)
[2017-07-25] MEDS: TOPIRAMATE 25 MG TABLET PO SCH ×2 (09:52→17:06)
[2017-07-25] MEDS: THIAMINE HCL 100 MG TABLET PO SCH (09:52)
[2017-07-25] MEDS: FOLIC ACID 1 MG TABLET PO SCH (09:52)
[2017-07-25] MEDS: LITHIUM CARBONATE CR 450 MG TABLET.SA PO SCH (09:53)
[2017-07-25] MEDS: CARBAMAZEPINE 200 MG TABLET PO SCH ×2 (09:53→20:59)
[2017-07-25] MEDS: LATUDA 60 MG PO SCH (09:53)
[2017-07-25 12:00] VITALS: BP 95/64
--- NOTE | 2017-07-25 12:18 | NUR ---
PRN MEDICATION ADMINISTRATION Pt reporting anxiety. Given Vistaril PRN for anxiety. Will reassess.
--- NOTE | 2017-07-25 13:18 | NUR ---
PRN MEDICATION REASSESSMENT At 1218, Pt given Vistaril PRN for Pt report of anxiety. At 1318, Pt reports decrease in anxiety.
--- NOTE | 2017-07-25 14:53 | NUR ---
REPORTED AURA Pt reporting aura around lights, states this occurs before she has a seizure. Pt requested anti-seizure medication. Dr. Jackson notified. states he will place an order for anti-seizure medication. RN to follow up on order and administer medication as ordered.
[2017-07-25] MEDS ORDERED: CARBAMAZEPINE 200 MG TABLET PO ONE (15:15)
--- NOTE | 2017-07-25 15:30 | NUR ---
TEGRETOL ONE TIME DOSE One time Tegretol 400 mg PO given as ordered. No seizure activity noted.
[2017-07-25 17:00] VITALS: BP 111/69
[2017-07-25] MEDS ORDERED: CARB200T8 PO (18:13)
[2017-07-25] MEDS ORDERED: LEVE500T9 PO (18:13)
[2017-07-25] MEDS ORDERED: HYDR-3895 PO (18:13)
--- NOTE | 2017-07-25 19:03 | NUR ---
END OF SHIFT NOTE 37 year old female. Admitted for ETOH and cocaine substance abuse. On Phenobarbital taper. Allergy to PCN and grapes/raisins. On fall and seizure precautions. History of seizure, bipolar disorder, anxiety and depression. 1218, Pt reported anxiety. Given PRN Vistaril. At 1318, Pt reporting decreased anxiety. 1453, pt reporting aura and stating this happens prior to a seizure for her. Dr. Jackson notified. placed order for one time Tegretol 400 mg PO. Tegretol administered as ordered. Tolerating Phenobarbital taper as evidenced by CIWA of 4 at 0800, 1200 and 1600. Consuming 75-100 percent of meals. Fluid intake 1396 ml. Void x 4, stool x 1. Report given to night RN. Side rails up x 2 and padded, bed in low position and locked. Call light within reach.
[2017-07-25 20:00] VITALS: BP 101/70
--- NOTE | 2017-07-25 20:00 | NUR ---
2000 Patient received awake, alert and ambulatory in her room. Upon seeing nurse, patient states loudly, " Hi, where have you been!?" Patient is oriented to person, place, day, date, time and her personal situation. Patient's color is willett-pink and her skin is clean, warm and intact. Patient denies any pain or other discomforts. Patient states that she is eating her regular diet meal trays and taking various fluids ad anita with no gastric issues. Patient easily smiles and laughs with nurse and she states that she is excited that she is being discharged tomorrow and she is " looking forward to the next phase of the rehab process". Vital signs are: 98.5-87-18 101/70, O2 Sat 100%, CIWA 2 . Patient was admitted on 07/18/17 for Alcohol and Cocaine withdrawal and she is presently on a phenobarbital taper per D.O. Patient has a strong history of seizures. Fall/seizure precautions continue. Patient is friendly, cooperative and verbally appropriate when interacting with nurse, and she voices no requests for anything at this time. Bed is locked and in lowest position, bed rails are up X 2 and call light within patient's easy reach.
[2017-07-25] MEDS: MIRTAZAPINE 15 MG TABLET PO SCH (20:58)
--- NOTE | 2017-07-25 20:59 | NUR ---
PRN MEDICATION: Prn Vistaril 25 mg p.o. given per c/o anxiety. Patient is "very excited" that she is being discharged tomorrow.
--- NOTE | 2017-07-25 21:59 | NUR ---
REASSESSMENT PRN MEDICATION: Patient is downstairs on hospital patio for smoke break. Unable to reassess patient at this time.
--- NOTE | 2017-07-26 | NUR ---
Patient refused to be awakened for V/S, CIWA to be done at this time.
[2017-07-26] MEDS: HYDROXYZINE PAMOATE 25 MG CAPSULE PO PRN (03:09)
--- NOTE | 2017-07-26 03:09 | NUR ---
PRN MEDICATION: Prn Vistaril 25 mg p.o. given per request for c/o anxiety.
--- NOTE | 2017-07-26 04:09 | NUR ---
REASSESSMENT PRN MEDICATION: Patient is sleeping comfortably with eyes closed and respirations quiet, even, unlabored at 12. Patient not awakened for V/S, CIWA to be done at this time.
--- NOTE | 2017-07-26 06:30 | NUR ---
0630 Patient slept a total of 5 hours and 30 minutes and she had 1 void and 1 stools. Total intake was 1,000 ml p.o. Prn medications given noted separately per floor protocol. V/SS afebrile, last CIWA was 2. Patient is presently awake, alert and downstairs on hospital patio for smoke. Patient is in stable condition at this time.
--- NOTE | 2017-07-26 07:10 | NUR ---
Start of shift note SBAR report rcv'd. Pt was admitted for ETOH dependence and cocaine use. Pt has an allergy to PCN, ibprofen, grapes, raisins and is a full code. Pt has a PMHx of seizures, anxiety, insomnia, deprssion, and bipolar disorder. Pt is currently resting in bed, pt states that she feels ready for discharge. Pt has no complaints at this time. Will continue to monitor pt.
[2017-07-26 08:00] VITALS: BP 106/77
[2017-07-26] MEDS: THIAMINE HCL 100 MG TABLET PO SCH (08:50)
[2017-07-26] MEDS: LEVETIRACETAM 500 MG TABLET PO SCH (08:50)
[2017-07-26] MEDS: CARBAMAZEPINE 200 MG TABLET PO SCH (08:50)
[2017-07-26] MEDS: LATUDA 60 MG PO SCH (08:50)
[2017-07-26] MEDS: FOLIC ACID 1 MG TABLET PO SCH (08:51)
[2017-07-26] MEDS: MULTIVITAMINS,THERAPEUTIC TABLET PO SCH (08:51)
[2017-07-26] MEDS: TOPIRAMATE 25 MG TABLET PO SCH (08:51)
[2017-07-26] MEDS: LITHIUM CARBONATE CR 450 MG TABLET.SA PO SCH (08:51)
[2017-07-26] MEDS ORDERED: PHENOBARBITAL 60 MG TABLET PO SCH (09:00)
--- NOTE | 2017-07-26 09:05 | NUR ---
Discharge note Pt was admitted for ETOH dependence. Pt completed a phenobarb taper without any ASE. Pt VS are WNL, pt CIWA of 1, pt states that she had a BM today. Pt verbalized her understanding of the discharge instructions. All needs addressed at his time. Pt denies SI/HI. Pt prescriptions, discharge instructions and all belongings returned to pt. Pt ID band removed, pt ambulated off of unit with AUDIT REVIEWER, left facility via [facility].
== END 2017-07-26 09:05 | disposition other institution (70) | DRG 895 ==
LOC: SRC 18:48
PROVIDERS: ADMIT Internal Medicine; ATTEND Internal Medicine
DX: F10.232 Alcohol dependence with withdrawal with perceptual disturbance (principal); F31.60 Bipolar disorder, current episode mixed, unspecified; F14.220 Cocaine dependence with intoxication, uncomplicated; G40.509 Epileptic seizures related to external causes, not intractable, without status epilepticus; F17.290 Nicotine dependence, other tobacco product, uncomplicated; Y90.8 Blood alcohol level of 240 mg/100 ml or more; Z82.3 Family history of stroke; Z81.1 Family history of alcohol abuse and dependence; Z81.8 Family history of other mental and behavioral disorders; Z91.14 Patient's other noncompliance with medication regimen; F43.10 Post-traumatic stress disorder, unspecified
CPT/HCPCS: 36415; 70030-TC; 80307; 80353; 83605; 83735; 84703; 85025; 86580; 86592; 86705; 86803; 87340; 87806; G0480; J2060; J3411; J7030; J8499; Q0162